=== PATIENT | female | born 1950 | race Caucasian/White ===

== ENCOUNTER 2024-02-18 12:55 | Outpatient (OUT) | payer MEDICARE, OTHER, SELFPAY ==
--- NOTE | 2024-02-18 12:59 | US_ITS ---
The [address] [address] Patient Name: RENNY LUNDBERG MRN: [id number] date: 1950 Sex: F Assigned Patient Location: [facility] Current Patient Location: [facility] Accession/Order Number: [id number] Exam Date: 02/18/2024 13:00 Report Date: 02/18/2024 15:00 At the request of: BOB MARTINEZ Procedure: US pelvis EXAMINATION: US pelvis HISTORY: RIGHT OVARIAN CYST FOUND ON CT SCAN COMPARISON: Outside report of the abdomen and pelvis dated 12/04/2023 FINDINGS: The uterus is normal in size, contour and echotexture measuring 6.1 x 1.1 x 2.4 cm. The uterus is anteverted, anteflexed The endometrium measures 3 mm, normal for postmenopausal patient The right ovary is not visualized The left ovary measures 4.6 x 2.9 x 4.0 cm. Normal color Doppler flow. Area of anechoic echogenicity measuring 3.3 x 3.1 x 2.4 cm, simple cyst, grossly stable from the prior CT report Right pelvic transplant kidney US/US pelvis IMPRESSION: 3.3 cm left ovarian simple cyst Electronically authenticated by: ARTUR ENAMORADO Date: 02/18/2024 15:00
== END 2024-02-18 12:56 | disposition home or self-care (01) ==
LOC: NOMS 12:56
PROVIDERS: PCP Family Medicine; Visit Provider Obstetrics & Gynecology
DX: R93.5 Abnormal findings on diagnostic imaging of other abdominal regions, including retroperitoneum (principal); N83.201 Unspecified ovarian cyst, right side; N83.202 Unspecified ovarian cyst, left side
CPT/HCPCS: 76856